=== PATIENT | female | born 1995 | race Native Hawaiian/Other Pacific Islander ===

== ENCOUNTER 2018-11-22 04:26 | Emergency (ER) | payer OTHER ==
--- NOTE | 2018-11-22 04:52 | EDM.PDOC ---
ED HPI GENERAL MEDICAL PROBLEM - General Chief Complaint: Burn Stated Complaint: LT LEG BURN Time Seen by Provider: 11/22/18 04:26 Source of Information: Reports: Patient, Other (co worker) History Limitations: Reports: No Limitations - History of Present Illness INITIAL COMMENTS - FREE TEXT/NARRATIVE: 23 y.o.b.bee came rom her work to the ed after she spilled hot water onto her left lower leg. No redness, no blisters were forming. Pt says the localized area at her leeft lower leg is burning. Cold compresses were applied. No N/V/D or dizziness or any other acute medical issues. Pt was not exposed to carbonmonoxide. BP 137/57 Puse 83 RR 17 Pulse ox 97 on RA Temp 36.7 Onset Date: 11/22/18 Onset Time: 03:00 Duration: Minutes:, Hour(s): Location: Reports: Lower Extremity, Left Quality: Reports: Burning Severity: Mild Improves with: Reports: Cold Therapy Worsens with: Reports: None Context: Reports: Other (Pt spilled hot water to her lower leg) Associated Symptoms: Reports: No Other Symptoms left lower leg Pain Score (Numeric/FACES): 8 - Related Data Allergies Allergy/AdvReac Type Severity Reaction Status Date / Time No Known Allergies Allergy Verified 11/22/18 04:37 Home Meds: Home Meds NK [No Known Home Meds] 11/22/18 [History] ED ROS GENERAL - Review of Systems Review Of Systems: See Below Constitutional: Reports: No Symptoms HEENT: Reports: No Symptoms Respiratory: Reports: No Symptoms Cardiovascular: Reports: No Symptoms Endocrine: Reports: No Symptoms GI/Abdominal: Reports: No Symptoms : Reports: No Symptoms Musculoskeletal: Reports: No Symptoms Skin: Reports: Rash (minimal left lower leg) Neurological: Reports: No Symptoms Psychiatric: Reports: No Symptoms Hematologic/Lymphatic: Reports: No Symptoms Immunologic: Reports: No Symptoms ED EXAM, BURN/SMOKE INHALATION - Physical Exam Exam: See Below Exam Limited By: No Limitations General Appearance: Alert, WD/WN, Mild Distress Eye Exam: Bilateral Eye: Normal Inspection Ears (Abbreviated): Normal External Exam Nose: Mouth/Throat: No Symptoms Reported Head: No Symptoms Neck: No Symptoms Respiratory: No Respiratory Distress, Lungs Clear, Normal Breath Sounds, No Accessory Muscle Use, Chest Non-Tender Cardiovascular: Normal Peripheral Pulses, Regular Rate, Rhythm, No Edema, No Gallop, No JVD, No Murmur, No Rub Peripheral Pulses: 1+: Brachial (L) GI/Abdominal: Normal Bowel Sounds, Soft, Non-Tender, No Organomegaly, No Abnormal Bruit, No Mass, Pelvis Stable (Female) Exam: Deferred Rectal Exam: Deferred Back Exam: Normal Inspection, Full Range of Motion Extremities: Normal Inspection, Normal Range of Motion, Non-Tender, No Pedal Edema Neurological: Alert, Oriented, CN II-XII Intact, Normal Cognition, Normal Gait, No Motor/Sensory Deficits Skin Exam: Warm, Dry, Intact, Normal Color, No Rash, Rash (no rash seen, just feels a burn at her left lower leg. localized to 1% of total body area) Lymphatic: No Adenopathy Course - Vital Signs Text/Narrative:: 23 y.o.b.f came rom her work to the ed after she spilled hot water onto her left lower leg. No redness, no blisters were forming. Pt says the localized area at her leeft lower leg is burning. Cold compresses were applied. No N/V/D or dizziness or any other acute medical issues. Pt was not exposed to carbonmonoxide. BP 137/57 Puse 83 RR 17 Pulse ox 97 on RA Temp 36.7 PE: WNWD B F with exposure to hot water at a localized area at her left lower leg, no blisters, no erythema seen Impression: 1st degree burn left lower leg 1% of TBSA, minimal (no blister no erythema) Tx: Cold compresses, neosporine. Reexam: Improved Plan: D/C with instruction. No work restrictions Last Recorded V/S: Last Vital Signs Temp 36.7 C 11/22/18 06:05 Pulse 91 11/22/18 06:05 Resp 17 11/22/18 06:05 BP 120/82 11/22/18 06:05 Pulse Ox 99 11/22/18 06:05 - Orders/Labs/Meds Orders: Active Orders 24 hr Category Date Time Status Vaccines to be Administered [RC] PER UNIT ROUTINE Care 11/22/18 04:55 Active Meds: Medications Discontinued Medications Generic Name Dose Route Start Last Admin Trade Name Freq PRN Reason Stop Dose Admin Diphtheria/Tetanus/Acell Pertussis 0.5 ml 11/22/18 04:55 11/22/18 05:01 Adacel IM 11/22/18 04:56 0.5 ml .ONCE ONE Administration Departure - Departure Time of Disposition: 04:52 Disposition: Home, Self-Care 01 Condition: Good Clinical Impression: Burn of left leg Qualifiers: Encounter type: initial encounter Burn degree: superficial (1st degree) Qualified Code(s): T24.102A - Burn of first degree of unspecified site of left lower limb, except ankle and foot, initial encounter - Discharge Information Instructions: Burn Care, Adult, [id number] Referrals: PCP,None [Primary Care Provider] - Forms: ED Department Discharge Additional Instructions: Please apply neosporine or silversulfadine ointment to the affected area twice daily for 3 days, please f/u, come back if your symptoms get worse acutely - My Orders Last 24 Hours: My Active Orders 11/22/18 04:55 Vaccines to be Administered [RC] PER UNIT ROUTINE - Assessment/Plan Last 24 Hours: My Active Orders 11/22/18 04:55 Vaccines to be Administered [RC] PER UNIT ROUTINE
[2018-11-22] MEDS ORDERED: Diphtheria,Pertussis(Acell),Tetanus Vaccine 0.5 ML SDV IM ONE (04:55)
== END 2018-11-22 06:09 | disposition home or self-care (01) ==
LOC: FB.ED 04:26
DX: T24.102A Burn of first degree of unspecified site of left lower limb, except ankle and foot, initial encounter (principal); T31.0 Burns involving less than 10% of body surface; Z23 Encounter for immunization
CPT/HCPCS: 90471; 90472; 90715; 99000; 99283